=== PATIENT | female | born 1950 | race Caucasian/White ===

== ENCOUNTER 2020-09-30 06:40 | Outpatient (NON) | payer BC, SELFPAY ==
[2020-10-01 01:03] LABS: SARS-CoV-2 RNA PCR Negative
== END 2020-09-30 06:41 ==
LOC: ANHCOVIDDT 06:40
PROVIDERS: PCP Family Medicine; Visit Provider Family Medicine
DX: Z20.828 Contact with and (suspected) exposure to other viral communicable diseases (principal)
CPT/HCPCS: 87635; C9803; U0003

== ENCOUNTER 2021-05-09 15:32 | Outpatient (CLI) | payer MEDICARE, SELFPAY ==
--- NOTE | ~2021-05-09 | XR_ITS ---
EXAMINATION: XR tibia fibula LT 2V DATE: 05/09/2021 15:55 INDICATION: Left lower leg injury and pain. TECHNIQUE: 2 views of left tibia and fibula were obtained. COMPARISON: None. FINDINGS: Bone alignment is normal. No fracture. Joint spaces are normal. IMPRESSION: 1. Normal left tibia and fibula. Reviewed, dictated and finalized at location A.
== END 2021-05-09 15:33 | disposition home or self-care (01) ==
LOC: ANHIMG 15:38
PROVIDERS: PCP Family Medicine; Visit Provider Physician Assistant
DX: M79.606 Pain in leg, unspecified (principal)
CPT/HCPCS: 73590

== ENCOUNTER 2022-07-17 12:04 | Outpatient (CLI) | payer MEDICARE, SELFPAY ==
--- NOTE | ~2022-07-17 | XR_ITS ---
XR chest 2V DATE: 07/17/2022 12:32 INDICATION: Shortness of breath TECHNIQUE: 2 views COMPARISON: 10/18/2018 PA chest FINDINGS: Interval small pleural effusions since 10/18/2018. Heart size is within normal limits. Pulmo nary vascular redistribution suggests mild pulmonary venous hypertension. No pulmonary infiltrate or consolidation. Aortic arch calcification. No hilar or mediastinal enlargement is evident. The lungs are moderately hyperinflated. Osteopenia. IMPRESSION: Mild congestive changes and pleural effusions Bilateral hyperinflation, suggesting obstructive airways disease Reviewed, dictated and finalized at location B.
--- NOTE | 2022-07-17 12:49 | ECG_ITS ---
Measurements Intervals Helen Rate: 99 P: 58 AZ: 116 QRS: -9 QRSD: 74 T: 79 QT: 346 QTc: 444 Interpretive Statements SINUS RHYTHM WITH SHORT [place] INTERVAL POSSIBLE LEFT ATRIAL ENLARGEMENT [-0.1mV P WAVE IN V1/V2] POSSIBLE LEFT VENTRICULAR HYPERTROPHY NO PREVIOUS ECG AVAILABLE FOR COMPARISON Electronically Signed On 07-17-2022 20:25:40 CDT by Alee Burris M.D.
[2022-07-17 13:45] LABS: Hematocrit 43.2 % (37.0-47.0); Hemoglobin 13.5 g/dL (12.0-15.0); Mean Corpuscular HGB Conc 31.3 g/dl (32-36); Mean Corpuscular Hemoglobin 27.2 pg (26-34); Mean Corpuscular Volume 87.1 fl (80-100); Mean Platelet Volume 10.6 fl (7.4-10.4); Platelet Count Result 291 k/mm3 (150-375); Red Blood Count 4.96 M/mm3 (4.2-5.4); Red Cell Distribution Width 12.9 % (11.5-14.5); White Blood Count 10.1 K/mm3 (4.5-10.0)
[2022-07-17 13:58] LABS: Anion Gap 12 mmol/L (8-16); Blood Urea Nitrogen 15 mg/dL (7-17); Calcium 9.6 mg/dL (8.4-10.2); Carbon Dioxide 24 mmol/L (22-30); Chloride 100 mmol/L (98-107); Estimated Glomerular Filt Rate > 60; Glucose 242 mg/dL (65-110); Potassium 3.9 mmol/L (3.4-5.0); Sodium 136 mmol/L (137-145)
[2022-07-17 14:05] LABS: NT Pro B Type Natriuretic Pept 369 pg/mL (5-100)
[2022-07-17 14:27] LABS: Thyroid Stimulating Hormone < 0.015 uIU/mL (0.465-4.680)
[2022-07-17 14:29] LABS: Free T4 Free Thyroxine 3.72 ng/mL (0.78-2.19)
== END 2022-07-17 12:05 | disposition home or self-care (01) ==
PROVIDERS: PCP Family Medicine; Visit Provider Physician Assistant
DX: R06.02 Shortness of breath (principal); E87.5 Hyperkalemia; I10 Essential (primary) hypertension; D64.9 Anemia, unspecified; R53.83 Other fatigue; R60.9 Edema, unspecified; J90 Pleural effusion, not elsewhere classified; R91.8 Other nonspecific abnormal finding of lung field; R94.31 Abnormal electrocardiogram [ECG] [EKG]
CPT/HCPCS: 36415; 71046; 80048; 83880; 84439; 84443; 85027; 93005

== ENCOUNTER 2022-08-07 13:37 | Outpatient (CLI) | payer MEDICARE, SELFPAY ==
--- NOTE | 2022-08-07 14:32 | ECHO_ITS ---
Patient Info Name: Trini Armando Age: 72 years : 1950 Gender: Female Ht: 64 in Wt: 148 lbs BSA: 1.75 m2 HR: 101 bpm BP: 174 / 78 mmHg Technical Quality: Good Exam Date: 08/07/2022 2:50 PM Exam Location: [facility] Patient Status: Outpatient Admit Date: 08/07/2022 Staff Ordering Physician: Edna Kasper PA-C Fruit Dumper: Ramiro Farley RDCS, RT Attending Provider: Edna Kasper PA-C Referring Physician: Ranjith DESHPANDE; Exam Type: CA echo doppler color flow Study Info Indications R60.0 - Localized edema Complete two-dimensional, color flow and Doppler transthoracic echocardiogram is performed. Strain analysis performed. Summary 1. Complete two-dimensional, color flow and Doppler transthoracic echocardiogram is performed. 2. Left ventricular chamber dimension is normal. 3. Left ventricular systolic function is hyperdynamic, estimated at >70%. 4. There is mildly increased left ventricular wall thickness. 5. The left ventricular diastolic function is grade I diastolic dysfunction. 6. E/e' 18 is elevated. 7. Global longitudinal strain is normal at -18.2%. 8. Left atrial chamber dimension is mildly enlarged. 9. There is moderate aortic valve sclerosis. 10. The mitral valve has moderately calcified annulus. Left Ventricle E/e' 18 is elevated. Global longitudinal strain is normal at -18.2%. Left ventricular chamber dimension is normal. Left ventricular systolic function is hyperdynamic, estimated at >70%. There is mildly increased left ventricular wall thickness. The left ventricular diastolic function is grade I diastolic dysfunction. Right Ventricle Right ventricular systolic function is normal and with normal TAPSE 2.5 cm. Right ventricular chamber dimension is normal. Left Atria Left atrial chamber dimension is mildly enlarged. Right Atria Right atrial chamber dimension is normal. Aortic Valve The aortic valve is trileaflet. There is moderate aortic valve sclerosis. There is no aortic valve stenosis. There is no aortic valve regurgitation. Pulmonic Valve There is no pulmonic regurgitation. Mitral Valve The mitral valve has moderately calcified annulus. There is no mitral valve stenosis. There is no mitral valve regurgitation. Tricuspid Valve There is no tricuspid valve regurgitation. Pericardium/Pleural There is no pericardial effusion. Inferior Vena Cava Normal inferior vena cava with >50% collapse upon inspiration consistent with normal right atrial pressure, 5 mmHg. Aorta The aortic root size at the sinus of Valsalva is normal. Left Ventricular Outflow Tract Name Value Normal LVOT 2D LVOT Diameter 1.9 cm LVOT Doppler LVOT Peak Gradient 9 mmHg LVOT Mean Gradient 5 mmHg LVOT VTI 28 cm LVOT VTI/AV VTI Ratio 0.7 LVOT Stroke Volume 80 ml LVOT CO 7.5 l/min LVOT CI 4.3 l/min/m2 Mitral Valve
--- NOTE | 2022-08-08 10:05 | WPDPFTINT ---
PFT Procedure Performed PFT Procedure Performed Plethysmography (Lung Vol) Diffusing Cap (DLCO) Flow Vol Loop Spirometry w/o Bronchodil PFT Interpretation This is a pulmonary function test with spirometry, plethysmography and diffusing capacity. The test was performed and results interpreted in accordance with the 2019 and 2005 ATS/ERS Task Force guidelines respectively using the Global Lung Function Initiative-2012 reference equations. Patient demonstrated good effort and cooperation. Reproducibility criteria were met. The quality of the spirometry maneuver was Grade A. Findings: Spirometry: The contour the expiratory flow tracing resembles that of a witch's hat . The contour the inspiratory flow tracing is normal. The FVC is 1.64 L, 57% predicted. The FEV1 is 1.30 L, 59% predicted. The FEV1: FVC ratio is 79%. Plethysmography: The total lung capacity is 3.24 L, 64% predicted. Functional residual capacity is 2.17 L, 75% predicted. The residual volume is 1.45 L, 66% predicted. Diffusing capacity: The diffusing capacity unadjusted for hemoglobin and carboxyhemoglobin is 12.6, 61% predicted. The diffusing capacity adjusted for alveolar volume is 5.39, 126 % predicted. Impression: There is a moderately severe restrictive ventilatory abnormality. The spirometry is normal without evidence of an obstructive abnormality. The diffusing capacity unadjusted for hemoglobin and carboxyhemoglobin is mildly decreased and normalizes when adjusted for alveolar volume. There are no prior studies for comparison
== END 2022-08-07 13:38 | disposition home or self-care (01) ==
LOC: ANHPFT 13:38
PROVIDERS: PCP Family Medicine; Visit Provider Physician Assistant
DX: R60.9 Edema, unspecified (principal); R06.02 Shortness of breath; R94.2 Abnormal results of pulmonary function studies
CPT/HCPCS: 93306; 94375; 94726; 94729

== ENCOUNTER 2022-09-06 12:37 | Outpatient (CLI) | payer MEDICARE, SELFPAY ==
--- NOTE | ~2022-09-06 | CT_ITS ---
EXAMINATION:CT diagnostic chest wo con DATE: 09/06/2022 13:47 INDICATION: Restrictive lung disease. TECHNIQUE: Computed tomography (CT) of the chest was performed without intravenous contrast. Automate d exposure control and iterative reconstruction technique were employed. The dose-length product (DLP ) was 118.84 mGy-cm. COMPARISON: None. FINDINGS: There is mild scarring at the lung apices. No bronchiectasis or honeycombing. There are a f ew nodules in the lungs measuring up to 5 mm in left upper lobe, likely benign. There is mild depende nt atelectasis bilaterally. There is a pleural plaque on the left. There are small pleural effusions, left worse than right. The heart size is normal. There are coronary artery calcifications. No perica rdial effusion. The central pulmonary arteries are enlarged, consistent with pulmonary arterial hyper tension. There is mild thoracic spondylosis. IMPRESSION: 1. Small pleural effusions. Reviewed, dictated and finalized at location A. IMPRESSION: 1. Small pleural effusions.
--- NOTE | 2022-09-14 15:14 | WPDSIXMINUTE ---
Six Minute Walk Procedure Procedure Performed Pulmonary Stress Test (6 min walk) Six Minute Walk Six Minute Walk: DATE OF SERVICE: 09/06/2022 REQUESTING: Pillo Camargo APRN REASON: Shortness of breath, chronic cough SIX MINUTE WALK Study was conducted per ATS standards. The patient performed this walk while breathing room air. Initial saturation is 94%. Pulse was 108. The patient walked without stopping, completing a total of 1400 ft, 426.7 m. This is excellent for her age. Saturation minimum was 89% at minute 4 and minute 5. After 1 minute of rest and recovery, saturation rebounded to 93%. pulse at the end of the study was 122. IMPRESSION: Mild desaturation without dany hypoxemia. Patient does not qualify for oxygen with exertion. Distance walked is adequate for age. Patient has baseline tachycardia 108. Clinical correlation recommended.
== END 2022-09-06 12:38 | disposition home or self-care (01) ==
LOC: ANHPFT 12:38
PROVIDERS: PCP Family Medicine; Visit Provider Nurse Practitioner Family
DX: R06.09 Other forms of dyspnea (principal); J98.4 Other disorders of lung; J90 Pleural effusion, not elsewhere classified
CPT/HCPCS: 71250; 94618